=== PATIENT | female | born 1990 ===

== ENCOUNTER → 2024-11-03 | Outpatient (REF) | payer OTHER ==
[2024-11-03 13:58] LABS: Trichomonas vaginalis (AMP) NOT DETECTED (NEGATIVE)
[2024-11-03 14:21] LABS: GC DNA AMPLIFICATION NEGATIVE (NEGATIVE)
[2024-11-03 17:38] LABS: ALT/SGPT 13 U/L (7.0-40); AST/SGOT 15 U/L (<34); CALCIUM LEVEL 8.7 MG/DL (8.5-10.1); CARBON DIOXIDE LEVEL 25 MMOL/L (20-31); CHLORIDE LEVEL 107 MMOL/L (98-107); CHOLESTEROL LEVEL 184 MG/DL (<200); CHOLESTEROL RISK RATIO 2.32 (<5); CREATININE FOR GFR 0.78 MG/DL (0.55-1.30); GLOMERULAR FILTRATION RATE > 90.0 (>60); HEPATITIS C VIRUS ABY INDEX 0.06 INDEX (<0.8); HIV 1&2 SCREEN NEGATIVE (NEGATIVE); LDL CHOLESTEROL 90.4 MG/DL (<100); NON-HDL-C 105.0 MG/DL; POTASSIUM SERUM 4.2 MMOL/L (3.5-5.1); SODIUM LEVEL 141 MMOL/L (136-145); TRIGLYCERIDES LEVEL 73 MG/DL (<150)
[2024-11-03 18:45] LABS: ESTIMATED AVERAGE GLUCOSE 100.0 MG/DL (60-110)
== END ==
LOC: M LAB REF 12:22
PROVIDERS: ATTEND Pediatrics
DX: R30.0 Dysuria (principal); E66.3 Overweight; Z11.8 Encounter for screening for other infectious and parasitic diseases; Z68.29 Body mass index [BMI] 29.0-29.9, adult